=== PATIENT | female | born 1975 | race Two or more races ===

== ENCOUNTER 2018-08-26 10:10 | Outpatient (CLI) | payer OTHER | END 2018-08-30 10:19 | disposition home or self-care (01) | LOC: RAD 10:10 | DX: K59.09 Other constipation (principal) ==

== ENCOUNTER → 2018-09-14 | Outpatient (CLI) | payer OTHER | END | disposition home or self-care (01) | LOC: RX STUDY 09-07 10:45 | DX: R10.13 Epigastric pain (principal); R13.14 Dysphagia, pharyngoesophageal phase ==

== ENCOUNTER 2021-10-24 08:15 | Inpatient (IN) | payer OTHER ==
[~2021-10-24] VITALS: Ht 167.6 cm; Wt 82.1 kg
[2021-10-24] MEDS ORDERED: METFORMIN PO (11:14)
[2021-10-24] MEDS ORDERED: AMLODIP PO (11:15)
[2021-10-24] MEDS ORDERED: PREVACID30 MG PO (11:16)
[2021-10-25] MEDS ORDERED: METFORMIN HCL850 M1 (15:45)
[2021-10-25] MEDS ORDERED: ROSUVASTATIN CAL5 MG (15:46)
[2021-10-25] MEDS ORDERED: SERTRALINE HCL50 MG (15:46)
[2021-10-25] MEDS ORDERED: AMLODIPINE-BEN1 EAC3 (15:46)
[2021-10-25] MEDS ORDERED: FAMOTIDINE40 MG (15:46)
[2021-10-25] MEDS ORDERED: SPRINTEC 28 DA1 EACH (15:46)
[2021-10-25] MEDS ORDERED: FOLIC ACID1 MG (15:46)
== END 2021-10-27 11:48 | disposition home or self-care (01) | DRG 741 ==
LOC: OB/GYN 10-25 06:16 → O/R 10-25 06:16 → OB/GYN 10-25 08:15
PROVIDERS: ADMIT Specialist; ATTEND Specialist
PROC: 0UT24ZZ Resection of Bilateral Ovaries, Percutaneous Endoscopic Approach (ICD-10-PCS; 2021-10-25)
PROC: 0UT74ZZ Resection of Bilateral Fallopian Tubes, Percutaneous Endoscopic Approach (ICD-10-PCS; 2021-10-25)
PROC: 07BC4ZZ Excision of Pelvis Lymphatic, Percutaneous Endoscopic Approach (ICD-10-PCS; 2021-10-25)
PROC: 0UT94ZZ Resection of Uterus, Percutaneous Endoscopic Approach (ICD-10-PCS; principal; 2021-10-25 08:30)
DX: C54.1 Malignant neoplasm of endometrium (principal); I10 Essential (primary) hypertension; E11.9 Type 2 diabetes mellitus without complications